=== PATIENT | female | born 1985 | race Caucasian/White ===

== ENCOUNTER 2017-02-03 11:58 | Emergency (ER) | payer OTHER ==
[~2017-02-03] VITALS: Ht 165.1 cm; Wt 63.5 kg
[~2017-02-03 11:58] MED LIST: HYOSCYAMIN125 MCG/5 PO; NOHOMEMEDICATIONS; VANCOCIN 125 M125 M1 MC
[2017-02-03] MEDS ORDERED: BLEPH-105 ML OPHTHALMIC (14:12)
[2017-02-03 14:22] VITALS: BP 129/88
== END 2017-02-03 14:24 ==
LOC: ER 11:58
DX: S05.02XA Injury of conjunctiva and corneal abrasion without foreign body, left eye, initial encounter (principal); X58.XXXA Exposure to other specified factors, initial encounter; Y93.89 Activity, other specified; Y92.89 Other specified places as the place of occurrence of the external cause; Y99.9 Unspecified external cause status; Z88.5 Allergy status to narcotic agent